=== PATIENT | female | born 1990 | race Caucasian/White ===

== ENCOUNTER 2019-06-01 21:28 | Emergency (ER) | payer BC, OTHER ==
[2019-06-01] MEDS ORDERED: Acetaminophen 500 MG Tab PO ONE (22:01)
--- NOTE | 2019-06-01 22:07 | EDM.PDOC ---
ED HPI GENERAL MEDICAL PROBLEM - General Chief Complaint: Lower Extremity Injury/Pain Stated Complaint: PT HURT LT ANKLE Time Seen by Provider: 06/01/19 21:55 - History of Present Illness INITIAL COMMENTS - FREE TEXT/NARRATIVE: HISTORY AND PHYSICAL: History of present illness: The patient is a healthy 29-year-old female who is newly diagnosed as and is only about 4 weeks and presents with complaints of left ankle pain that occurred this morning while she was playing volleyball at a work event. She says that she stopped to make a play and rolled her ankle and did not fall to the ground but she has had pain at her lateral ankle since that time. She did not hit her head pass out or blackout and has no proximal left leg knee hip or thigh pain. She has not taken anything for the pain today concerned about an injury. She has no abdominal complaints and no other systemic complaints. She has been walking around on the injury throughout the day today but has tried to limit that Review of systems: As per history of present illness and below otherwise all systems reviewed and negative. Past medical history: As per history of present illness and as reviewed below otherwise noncontributory. Surgical history: As per history of present illness and as reviewed below otherwise noncontributory. Social history: No reported history of drug or alcohol abuse. Family history: As per history of present illness and as reviewed below otherwise noncontributory. Physical exam: General: Well-developed well-nourished female who is nontoxic and vital signs are noted by me HEENT: Atraumatic, normocephalic, negative for conjunctival pallor or scleral icterus, mucous membranes moist, throat clear, neck supple, nontender, trachea midline. Lungs: Clear to auscultation, breath sounds equal bilaterally, chest nontender. Heart: S1S2, regular rate and rhythm no overt murmurs Abdomen: Soft, nondistended, nontender. . Pelvis: Stable nontender. No lateral hip tenderness on the left Genitourinary: Deferred. Rectal: Deferred. Extremities: Atraumatic and full range of motion of all extremities with the exception of the left ankle where there is some minimal soft tissue swelling seen at the lateral ankle. There is no ecchymosis abrasions or erythema appreciated and there is tenderness with palpation of this region but there are no bony defects or malalignments appreciated. The distal foot and metatarsals including the fifth metatarsal has no tenderness as do the toes and neurovascular is intact. There is no heel tenderness and no proximal tib-fib knee thigh or hip tenderness on the left. The legs are, negative for cords or calf pain. Neurovascular unremarkable. Neuro: Awake, alert, oriented. Cranial nerves II through XII unremarkable. Cerebellum unremarkable. Motor and sensory unremarkable throughout. Exam nonfocal. Diagnostics: X-ray left ankle Therapeutics: Ice pack, Tylenol, ortho boot and crutches Patient is aware that as she is early first trimester and pain management is limited to just Tylenol. She is comfortable with this care plan Impression: Left ankle injury Definitive disposition and diagnosis as appropriate pending reevaluation and review of above. Left Pain Score (Numeric/FACES): 5 - Related Data Allergies Allergy/AdvReac Type Severity Reaction Status Date / Time No Known Allergies Allergy Verified 06/01/19 21:42 Home Meds: Home Meds Albuterol [Ventolin HFA] 2 puff INH ASDIRECTED PRN 07/13/16 [History] Mv-Mn/Iron/FA/Herbal/Digestive [ One Tablet] 1 tab PO DAILY 07/13/16 [ History] ALPRAZolam [Alprazolam] 0.5 mg PO ASDIRECTED PRN 06/29/18 [History] Past Medical History HEENT History: Reports: Other (See Below) Other HEENT History: wears glasses Cardiovascular History: Reports: None Respiratory History: Reports: Asthma Gastrointestinal History: Reports: None Genitourinary History: Reports: None 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: Musculoskeletal History: Reports: None Neurological History: Reports: None Psychiatric History: Reports: Anxiety Endocrine/Metabolic History: Reports: None 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 Hematologic History: Reports: None Immunologic History: Reports: None Oncologic (Cancer) History: Reports: None Dermatologic History: Reports: None - Infectious Disease History Infectious Disease History: Reports: None - Past Surgical History Head Surgeries/Procedures: Reports: None HEENT Surgical History: Reports: Oral Surgery, Tonsillectomy Female Surgical History: Reports: Section Social & Family History - Family History Family Medical History: Noncontributory Respiratory: Reports: Asthma GI: Reports: Irritable Bowel Syndrome, Other (See Below) Other GI Family History: Ulcerative colitis : Reports: None OBGYN: Reports: None, Recurrent Spontaneous Musculoskeletal: Reports: Other (See Below) Other Musculoskeletal Family History: Rheumatoid arthritis Neurological: Reports: Dementia, TIA Psychiatric: Reports: None Endocrine/Metabolic: Reports: None Hematologic: Reports: Other (See Below) Other Hematologic Family History: Factor 5 disorder Immunologic: Reports: None Dermatologic: Reports: Psoriasis Oncologic: Reports: Other (See Below) Other Oncologic Family History: Multiple myloma - Tobacco Use Smoking Status *Q: Never Smoker - Caffeine Use Caffeine Use: Reports: Tea - Recreational Drug Use Recreational Drug Use: No Review of Systems - Review of Systems Review Of Systems: ROS reveals no pertinent complaints other than HPI. ED EXAM, GENERAL - Physical Exam Exam: See Below (See dictation) Course - Vital Signs Last Recorded V/S: Last Vital Signs Temp 36.6 C 06/01/19 21:43 Pulse 86 06/01/19 21:43 Resp 18 06/01/19 21:43 BP 127/66 06/01/19 21:43 Pulse Ox 100 06/01/19 21:43 - Orders/Labs/Meds Orders: Active Orders 24 hr Category Date Time Status Ankle Min 3V Lt [CR] Stat Exams 06/01/19 22:01 Taken DME for Discharge [COMM] Stat Oth 06/01/19 22:32 Ordered Meds: Medications Discontinued Medications Generic Name Dose Route Start Last Admin Trade Name Danette PRN Reason Stop Dose Admin Acetaminophen 1,000 mg 06/01/19 22:01 06/01/19 22:06 Tylenol Extra Strength PO 06/01/19 22:02 1,000 mg ONETIME ONE Administration Departure - Departure Time of Disposition: 22:33 Disposition: Home, Self-Care 01 Condition: Good Clinical Impression: Left ankle injury Qualifiers: Encounter type: initial encounter Qualified Code(s): S99.912A - Unspecified injury of left ankle, initial encounter - Discharge Information Referrals: PCP,None [Primary Care Provider] - Forms: ED Department Discharge Additional Instructions: The following information is given to patients seen in the emergency department who are being discharged to home. This information is to outline your options for follow-up care. We provide all patients seen in our emergency department with a follow-up referral. The need for follow-up, as well as the timing and circumstances, are variable depending upon the specifics of your emergency department visit. If you don't have a primary care physician on staff, we will provide you with a referral. We always advise you to contact your personal physician following an emergency department visit to inform them of the circumstance of the visit and for follow-up with them and/or the need for any referrals to a consulting specialist. The emergency department will also refer you to a specialist when appropriate. This referral assures that you have the opportunity for followup care with a specialist. All of these measure are taken in an effort to provide you with optimal care, which includes your followup. Under all circumstances we always encourage you to contact your private physician who remains a resource for coordinating your care. When calling for followup care, please make the office aware that this follow-up is from your recent emergency room visit. If for any reason you are refused follow-up, please contact the [facility] emergency department at and ask to speak to the emergency department charge nurse. Dr Barragan, Orthopedist [facility] [address] [place] [address] Dr Arellano - Dr Myers - Dr Randhawa [facility] at [facility] [address] [place] [address] [facility] [address] [place] [address] Ice and elevate the area and do not weight-bear until you follow up with an pharmacy operations specialist. We no longer have orthopedics available here in our clinics and resources have been given to above of local clinics that you can follow up with. You have been given a disc so that the specialist can review your x-rays on your appointment. His [id number] Tylenol only as you are early for pain management and where the ortho boot and use crutches as you have been shown. Return to ER as needed and as discussed - My Orders Last 24 Hours: My Active Orders 06/01/19 22:01 Ankle Min 3V Lt [CR] Stat 06/01/19 22:32 DME for Discharge [COMM] Stat - Assessment/Plan Last 24 Hours: My Active Orders 06/01/19 22:01 Ankle Min 3V Lt [CR] Stat 06/01/19 22:32 DME for Discharge [COMM] Stat
--- NOTE | 2019-06-01 23:03 | CR ---
Indication: Injury and pain Technique: Left ankle 3 views. Comparison: None Findings: Bones: 2 x 1 millimeter crescent-shaped density at the fibular tip. Joint spaces: Unremarkable. Soft tissues: Lateral soft tissue swelling. Impression: Lateral soft tissue swelling with small ossification near the fibular tip. Differential diagnosis includes an ossicle or age-indeterminate avulsion fragment. Dictated by Junior Cortez MD @ Jun 01 2019 11:01PM Signed by Dr. Junior Cortez @ Jun 01 2019 11:02PM
[2019-06-01 23:26] VITALS: BP 105/70; PULSE 78
== END 2019-06-01 21:55 | disposition home or self-care (01) ==
LOC: MW.ED 21:28
DX: S99.912A Unspecified injury of left ankle, initial encounter (principal); J45.909 Unspecified asthma, uncomplicated; F41.9 Anxiety disorder, unspecified; Z79.51 Long term (current) use of inhaled steroids; Z98.890 Other specified postprocedural states; Z79.899 Other long term (current) drug therapy; X50.0XXA Overexertion from strenuous movement or load, initial encounter; Y93.68 Activity, volleyball (beach) (court); Y99.0 Civilian activity done for income or pay
CPT/HCPCS: 73610; 99283; A9270

== ENCOUNTER 2020-01-29 03:34 | Inpatient (IN) | payer OTHER ==
[2020-01-29] MEDS ORDERED: Sodium Chloride 0.9% 10 ML SDV IV PRN (05:22)
[2020-01-29] MEDS ORDERED: Citric Acid/Sodium Citrate Solution 30 ML Cup PO ONE (05:22)
[2020-01-29] MEDS ORDERED: Ondansetron 4 MG/2 ML SDV IVPUSH PRN ×3 (05:22→09:17)
[2020-01-29] MEDS ORDERED: Sodium Chloride 0.9% 10 ML Syringe FLUSH PRN (05:22)
[2020-01-29] MEDS ORDERED: Sodium Chloride 0.9% 2.5 ML Syringe FLUSH PRN (05:22)
[2020-01-29] MEDS ORDERED: Oxytocin/0.9 % Sodium Chloride 30 UNIT/500 ML BAG IV SCH (05:30)
[2020-01-29] MEDS: Lactated Ringers 1,000 ML IV SCH ×2 (05:52→06:43)
[2020-01-29] MEDS ORDERED: Citric Acid/Sodium Citrate Solution 30 ML Cup ONE (07:27)
--- NOTE | 2020-01-29 07:32 | PCM.PREANE ---
Preanesthetic Assessment - Anesthesia/Transfusion/Family Hx Anesthesia History: Prior Anesthesia Reaction Other Type of Anesthesia Reaction Comment: spinal headache after spinal anesthesia requiring 2 blood patches 7 days ap Family History of Anesthesia Reaction: No Transfusion History: No Prior Transfusion(s) Intubation History: Unknown - Review of Systems General: No Symptoms Pulmonary: No Symptoms Cardiovascular: No Symptoms Gastrointestinal: No Symptoms Neurological: No Symptoms Other: Reports: None - Physical Assessment Height: 5 ft 8 in Weight: 88.451 kg ASA Class: 2 Mental Status: Alert & Oriented x3 Airway Class: Mallampati = 2 Dentition: Reports: Normal Dentition Thyro-Mental Finger Breadths: 3 Mouth Opening Finger Breadths: 3 ROM/Head Extension: Full Lungs: Clear to Auscultation, Normal Respiratory Effort Cardiovascular: Regular Rate, Regular Rhythm - Lab Values: Laboratory Last Values WBC 8.04 K/uL (4.0-11.0) 01/29/20 05:49 RBC 4.09 M/uL (4.30-5.90) L 01/29/20 05:49 Hgb 13.0 g/dL (12.0-16.0) 01/29/20 05:49 Hct 38.7 % (36.0-46.0) 01/29/20 05:49 MCV 94.6 fL (80.0-98.0) 01/29/20 05:49 MCH 31.8 pg (27.0-32.0) 01/29/20 05:49 MCHC 33.6 g/dL (31.0-37.0) 01/29/20 05:49 RDW Std Deviation 43.4 fl (28.0-62.0) 01/29/20 05:49 RDW Coeff of Mary 13 % (11.0-15.0) 01/29/20 05:49 Plt Count 172 K/uL (150-400) 01/29/20 05:49 MPV 10.70 fL (7.40-12.00) 01/29/20 05:49 Nucleated RBC % 0.0 /100WBC 01/29/20 05:49 Nucleated RBCs # 0 K/uL 01/29/20 05:49 Blood Type O POSITIVE 01/29/20 06:18 Antibody Screen NEGATIVE 01/29/20 06:18 - Allergies Allergies/Adverse Reactions: Allergies Allergy/AdvReac Type Severity Reaction Status Date / Time No Known Allergies Allergy Verified 01/23/20 10:07 - Blood Blood Available: No - Anesthesia Plan Pre-Op Medication Ordered: None - Acknowledgements Anesthesia Type Planned: Spinal (general anesthesia back-up plan) Pt an Appropriate Candidate for the Planned Anesthesia: Yes Alternatives and Risks of Anesthesia Discussed w Pt/Guardian: Yes Pt/Guardian Understands and Agrees with Anesthesia Plan: Yes PreAnesthesia Questionnaire HEENT History: Reports: Other (See Below) Other HEENT History: wears glasses Cardiovascular History: Reports: None Respiratory History: Reports: Asthma (mild to moderate) Gastrointestinal History: Reports: None Genitourinary History: Reports: None 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: , 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 Musculoskeletal History: Reports: None Neurological History: Reports: None Psychiatric History: Reports: Anxiety Endocrine/Metabolic History: Reports: None Hematologic History: Reports: None Immunologic History: Reports: None Oncologic (Cancer) History: Reports: None Dermatologic History: Reports: None - Infectious Disease History Infectious Disease History: Reports: Scarlet Fever, Shingles - Past Surgical History Head Surgeries/Procedures: Reports: None HEENT Surgical History: Reports: Oral Surgery, Tonsillectomy Other HEENT Surgeries/Procedures: wisdom teeth extraction, tonsillectomy Cardiovascular Surgical History: Reports: None Respiratory Surgical History: Reports: None GI Surgical History: Reports: None Female Surgical History: Reports: Section (x2), D&C Endocrine Surgical History: Reports: None Neurological Surgical History: Reports: None Musculoskeletal Surgical History: Reports: None Oncologic Surgical History: Reports: None Dermatological Surgical History: Reports: None - SUBSTANCE USE Smoking Status *Q: Never Smoker Second Hand Smoke Exposure: No - HOME MEDS Home Medications: Home Meds Albuterol [Ventolin HFA] 2 puff INH ASDIRECTED PRN 07/13/16 [History] Mv-Mn/Iron/FA/Herbal/Digestive [ One Tablet] 1 tab PO DAILY 07/13/16 [ History] ALPRAZolam [Alprazolam] 0.5 mg PO ASDIRECTED PRN 06/29/18 [History] Fluticasone Propionate [Flovent HFA] 2 puff INH DAILY 01/23/20 [History] - CURRENT (IN HOUSE) MEDS Current Meds: Current Medications Lactated Ringer's (Ringers, Lactated) 1,000 mls @ 500 mls/hr IV BOLUS SUSANNE Last Admin: 01/29/20 06:43 Dose: 500 mls/hr Oxytocin/Sodium Chloride (Oxytocin 30 Unit/500 Ml-Ns) 30 unit in 500 mls @ 250 mls/hr IV TITRATE [facility] Ondansetron HCl (Zofran) 4 mg IVPUSH Q4H PRN PRN Reason: Nausea/Vomiting Sodium Chloride (Saline Flush) 10 ml FLUSH ASDIRECTED PRN PRN Reason: Keep Vein Open Sodium Chloride (Saline Flush) 2.5 ml FLUSH ASDIRECTED PRN PRN Reason: Keep Vein Open Sodium Chloride (Normal Saline) 10 ml IV ASDIRECTED PRN PRN Reason: IV Use Discontinued Medications Citric Acid/Sodium Citrate (Bicitra Solution) 30 ml PO ONETIME ONE Stop: 01/29/20 05:23
[2020-01-29] MEDS ORDERED: Phenylephrine 1% 10 MG/ML SDV ONE (07:33)
[2020-01-29] MEDS ORDERED: Oxytocin 10 Units/1 ML SDV ONE (07:36)
[2020-01-29] MEDS ORDERED: Ketorolac 30 MG/ML SDV ONE (07:37)
[2020-01-29] MEDS ORDERED: Ondansetron 4 MG/2 ML SDV ONE (07:37)
[2020-01-29] MEDS ORDERED: Sodium Chloride 0.9% 20 ML ONE (07:37)
[2020-01-29] MEDS ORDERED: ceFAZolin 1 GM Vial ONE (07:37)
[2020-01-29] MEDS ORDERED: Morphine PF 10 MG/10 ML SDV ONE (07:41)
[2020-01-29] MEDS ORDERED: Propofol 200 MG/20 ML SDV ONE (08:06)
[2020-01-29] MEDS ORDERED: Midazolam 1 MG/ML 2 ML SDV ONE (08:28)
--- NOTE | 2020-01-29 08:48 | PCM.OPNOTE ---
- General Post-Op/Procedure Note Date of Surgery/Procedure: 01/29/20 Operative Procedure(s): repeat low transverse Findings: Liveborn male 9/9 weight pending, normal pelvis Pre Op Diagnosis: 39 weeks, prior , desires repeat Post-Op Diagnosis: Same Anesthesia Technique: Spinal Primary Surgeon: Stefani Angel Secondary Surgeon: Sherrell Dunlap Anesthesia Provider: Bassam Servin Pathology: none Fluid Replacement, Intraop: 1,600 EBL in mLs: 300 Complications: None Known Condition: Good Free Text/Narrative:: Intake & Output 01/28/20 01/29/20 01/29/20 22:59 06:59 14:59 Intake Total 1000 Balance 1000
[2020-01-29] MEDS ORDERED: Bisacodyl 10 MG Supp RECTAL PRN (08:49)
[2020-01-29] MEDS ORDERED: diphenhydrAMINE 50 MG/ML SDV IVPUSH PRN ×2 (08:49→09:17)
[2020-01-29] MEDS ORDERED: Lanolin 100% Cream 7 GM Tube TOP PRN (08:49)
[2020-01-29] MEDS ORDERED: Tranexamic Acid 1,000 MG in Sodium Chloride 0.9% 100 ML IV PRN (08:49)
[2020-01-29] MEDS ORDERED: Misoprostol 200 MCG Tab RECTAL PRN (08:49)
[2020-01-29] MEDS ORDERED: Methylergonovine 0.2 MG/1 ML Amp IM PRN (08:49)
[2020-01-29] MEDS ORDERED: Oxytocin 10 Units/1 ML SDV IM PRN (08:49)
[2020-01-29] MEDS ORDERED: Oxytocin/Lactated Ringers 30 UNIT/500 ML BAG IV SCH (09:00)
[2020-01-29] MEDS ORDERED: Lactated Ringers 1,000 ML IV SCH (09:00)
[2020-01-29] MEDS ORDERED: fentaNYL 100 MCG/2 ML SDV IVPUSH PRN ×2 (09:17→09:57)
[2020-01-29] MEDS ORDERED: Naloxone 0.4 MG/ML Syringe IVPUSH PRN (09:17)
[2020-01-29] MEDS ORDERED: Acetaminophen/oxyCODONE 325-5 MG Tab PO PRN (09:17)
[2020-01-29] MEDS ORDERED: Oxytocin/0.9 % Sodium Chloride 30 UNIT/500 ML BAG ONE (09:40)
[2020-01-29] MEDS: Nalbuphine 10 MG/1 ML Vial IVPUSH PRN ×3 (10:19→20:31)
[2020-01-29] MEDS: Docusate Sodium 100 MG Cap PO SCH ×2 (13:10→20:38)
[2020-01-29] MEDS: Acetaminophen/oxyCODONE 325-5 MG Tab PO PRN ×3 (14:21→23:47)
[2020-01-29] MEDS: Ibuprofen 800 MG Tab PO PRN (22:24)
--- NOTE | 2020-01-30 05:03 | PCM48HPAN ---
Post Anesthesia Note - EVALUATION WITHIN 48HRS OF ANESTHETIC Vital Signs in Normal Range: Yes Patient Participated in Evaluation: Yes Respiratory Function Stable: Yes Airway Patent: Yes Cardiovascular Function Stable: Yes Hydration Status Stable: Yes Pain Control Satisfactory: Yes Nausea and Vomiting Control Satisfactory: Yes Mental Status Recovered: Yes Vital Signs: Last Vital Signs Temp 36.4 C 01/30/20 04:00 Pulse 67 01/30/20 04:00 Resp 16 01/30/20 04:00 BP 98/62 01/30/20 04:00 Pulse Ox 97 01/30/20 04:00
[2020-01-30] MEDS: Acetaminophen/oxyCODONE 325-5 MG Tab PO PRN ×5 (05:49→22:59)
--- NOTE | 2020-01-30 08:22 | PCM.PNPP ---
- General Info Date of Service: 01/30/20 Functional Status: Reports: Pain Controlled, Tolerating Diet, Ambulating, Urinating - Review of Systems General: Reports: No Symptoms HEENT: Reports: No Symptoms Pulmonary: Reports: No Symptoms Cardiovascular: Reports: No Symptoms Gastrointestinal: Reports: No Symptoms Genitourinary: Reports: No Symptoms Musculoskeletal: Reports: No Symptoms Skin: Reports: No Symptoms Neurological: Reports: No Symptoms Psychiatric: Reports: No Symptoms - General Info Date of Service: 01/30/20 - Patient Data Vital Signs - Most Recent: Last Vital Signs Temp 36.4 C 01/30/20 04:00 Pulse 67 01/30/20 04:00 Resp 14 01/30/20 05:00 BP 98/62 01/30/20 04:00 Pulse Ox 97 01/30/20 05:00 Weight - Most Recent: 88.451 kg I&O - Last 24 Hours: Intake & Output 01/29/20 01/30/20 01/30/20 22:59 06:59 14:59 Output Total 1250 1000 Balance -1250 -1000 Lab Results - Last 24 Hours: Laboratory Results - last 24 hr 01/29/20 01/30/20 Range/Units 08:08 04:50 Hgb 11.4 L (12.0-16.0) g/dL Hct 34.9 L (36.0-46.0) % Cord VBG pH 7.400 (7.25-7.45) Cord VBG Base Excess -2 (-10--2) Med Orders - Current: Current Medications Bisacodyl (Dulcolax) 10 mg RECTAL ONETIME PRN PRN Reason: Constipation Diphenhydramine HCl (Benadryl) 25 mg IVPUSH Q6H PRN PRN Reason: Itching or Nausea Diphenhydramine HCl (Benadryl) 25 mg IVPUSH Q4H PRN PRN Reason: Itching Stop: 01/30/20 09:17 Docusate Sodium (Colace) 100 mg PO BID SUSANNE Last Admin: 01/29/20 20:38 Dose: 100 mg Emollient Ointment (Lansinoh Hpa) 0 gm TOP ASDIRECTED PRN PRN Reason: Sore Nipples Last Admin: 01/29/20 10:21 Dose: 1 tube Fentanyl (Sublimaze) 50 mcg IVPUSH Q1H PRN PRN Reason: Pain (severe 7-10) Last Admin: 01/29/20 10:21 Dose: 50 mcg Fentanyl (Sublimaze) 50 - 100 mcg IVPUSH Q5M PRN PRN Reason: Pain (severe 7-10) Lactated Ringer's (Ringers, Lactated) 1,000 mls @ 125 mls/hr IV ASDIRECTED SUSANNE Last Admin: 01/29/20 09:52 Dose: 125 mls/hr Oxytocin/Lactated Ringer's (Pitocin In Lr 30 Units/500 Ml) 30 unit in 500 mls @ 999 mls/hr IV TITRATE SUSANNE; Protocol Tranexamic Acid 1,000 mg/ (Sodium Chloride) 110 mls @ 660 mls/hr IV ONETIME PRN PRN Reason: Bleeding Ibuprofen (Motrin) 800 mg PO Q8H PRN PRN Reason: mild pain or fever Last Admin: 01/29/20 22:24 Dose: 800 mg Methylergonovine Maleate (Methergine) 0.2 mg IM ONETIME PRN PRN Reason: Excessive Vaginal Bleeding Misoprostol (Cytotec) 1,000 mcg RECTAL ONETIME PRN PRN Reason: excessive bleeding Nalbuphine HCl (Nubain) 5 mg IVPUSH ASDIRECTED PRN PRN Reason: Itching Last Admin: 01/29/20 20:31 Dose: 5 mg Naloxone HCl (Narcan) 0.1 mg IVPUSH ONETIME PRN PRN Reason: Respiratory Depression Stop: 01/30/20 09:17 Ondansetron HCl (Zofran) 4 mg IVPUSH Q4H PRN PRN Reason: Nausea/Vomiting Ondansetron HCl (Zofran) 4 mg IVPUSH Q6H PRN PRN Reason: Nausea Oxycodone/Acetaminophen (Percocet 325-5 Mg) 1 tab PO Q4H PRN PRN Reason: Pain (moderate 4-6) Last Admin: 01/30/20 05:49 Dose: 1 tab Oxycodone/Acetaminophen (Percocet 325-5 Mg) 2 tab PO Q4H PRN PRN Reason: Pain (moderate 4-6) Last Admin: 01/29/20 23:47 Dose: 2 tab Oxycodone/Acetaminophen (Percocet 325-5 Mg) 2 tab PO Q6H PRN PRN Reason: Pain (moderate 4-6) Oxytocin (Pitocin) 10 unit IM ASDIRECTED PRN PRN Reason: Excessive Vaginal Bleeding Discontinued Medications Cefazolin Sodium (Ancef) Confirm Administered Dose 2 gm .ROUTE .STK-MED ONE Stop: 01/29/20 07:38 Citric Acid/Sodium Citrate (Bicitra Solution) 30 ml PO ONETIME ONE Stop: 01/29/20 05:23 Citric Acid/Sodium Citrate (Bicitra Solution) Confirm Administered Dose 30 ml .ROUTE .STK-MED ONE Stop: 01/29/20 07:28 Lactated Ringer's (Ringers, Lactated) 1,000 mls @ 500 mls/hr IV BOLUS SUSANNE Last Admin: 01/29/20 06:43 Dose: 500 mls/hr Oxytocin/Sodium Chloride (Oxytocin 30 Unit/500 Ml-Ns) 30 unit in 500 mls @ 250 mls/hr IV TITRATE SUSANNE Sodium Chloride (Normal Saline) Confirm Administered Dose 20 mls @ as directed .ROUTE .STK-MED ONE Stop: 01/29/20 07:38 Oxytocin/Sodium Chloride (Oxytocin 30 Unit/500 Ml-Ns) Confirm Administered Dose 30 unit in 500 mls @ as directed .ROUTE .STK-MED ONE Stop: 01/29/20 09:41 Last Admin: 01/29/20 09:53 Dose: 500 mls/hr Ketorolac Tromethamine (Toradol) Confirm Administered Dose 30 mg .ROUTE .STK- MED ONE Stop: 01/29/20 07:38 Midazolam HCl (Versed 1 Mg/Ml) Confirm Administered Dose 2 mg .ROUTE .STK-MED ONE Stop: 01/29/20 08:29 Morphine Sulfate (Duramorph Pf) Confirm Administered Dose 10 mg .ROUTE .STK-MED ONE Stop: 01/29/20 07:42 Ondansetron HCl (Zofran) 4 mg IVPUSH Q4H PRN PRN Reason: Nausea/Vomiting Ondansetron HCl (Zofran) Confirm Administered Dose 4 mg .ROUTE .STK-MED ONE Stop: 01/29/20 07:38 Oxytocin (Pitocin) Confirm Administered Dose 20 unit .ROUTE .STK-MED ONE Stop: 01/29/20 07:37 Phenylephrine HCl (Thony-Synephrine) Confirm Administered Dose 10 mg .ROUTE .STK- MED ONE Stop: 01/29/20 07:34 Propofol (Diprivan 20 Ml) Confirm Administered Dose 200 mg .ROUTE .STK-MED ONE Stop: 01/29/20 08:07 Sodium Chloride (Saline Flush) 10 ml FLUSH ASDIRECTED PRN PRN Reason: Keep Vein Open Sodium Chloride (Saline Flush) 2.5 ml FLUSH ASDIRECTED PRN PRN Reason: Keep Vein Open Sodium Chloride (Normal Saline) 10 ml IV ASDIRECTED PRN PRN Reason: IV Use Tranexamic Acid (Cyklokapron) Confirm Administered Dose 1,000 mg .ROUTE .STK- MED ONE Stop: 01/29/20 08:32 - Interaction Infant Disposition, : at Bedside Infant Interaction: Holding Infant Feeding: Breastfed ; Nursed Well (right nipple bleeding significantly) Support Person: - Recovery Exam Fundal Tone: Firm Fundal Level: 1 Fingerbreadths Below Umbilicus Fundal Placement: Midline Lochia Amount: Scant Lochia Color: Rubra/Red Perineum Description: Intact, Minimal Bruising/Swelling Episiotomy/Laceration: None Bladder Status: Indwelling Catheter in Place Urinary Elimination: Indwelling Catheter - Exam General: Alert, Oriented Neck: Supple Lungs: Normal Respiratory Effort GI/Abdominal Exam: Soft, Non-Tender Extremities: Non-Tender, No Pedal Edema Skin: Warm, Dry, Intact Wound/Incisions: Dressing Dry and Intact Neurological: No New Focal Deficit Psy/Mental Status: Alert, Normal Affect, Normal Mood Physical Findings Comment:: right nipple inverted with abrasion bleeding at edge of nipple. - Problem List & Annotations (1) Previous delivery, delivered SNOMED Code(s): 793960074, 073210232 Code(s): O34.219 - MATERNAL CARE FOR UNSP TYPE SCAR FROM PREVIOUS DEL Status: Acute Current Visit: No - Problem List Review Problem List Initiated/Reviewed/Updated: Yes - My Orders Last 24 Hours: My Active Orders 01/29/20 08:49 Patient Status [ADT] Routine Ambulate [RC] PER UNIT ROUTINE Antiembolic Devices [RC] PER UNIT ROUTINE Communication Order [RC] PER UNIT ROUTINE Communication Order [RC] PER UNIT ROUTINE Communication Order [RC] Per Unit Routine May Shower [RC] ASDIRECTED RT Incentive Spirometry [RC] Q2HWA Vital Signs [RC] PER UNIT ROUTINE Acetaminophen/oxyCODONE [Percocet 325-5 MG] 1 tab PO Q4H PRN Acetaminophen/oxyCODONE [Percocet 325-5 MG] 2 tab PO Q4H PRN Ibuprofen [Motrin] 800 mg PO Q8H PRN Lanolin [Lansinoh HPA] See Dose Instructions TOP ASDIRECTED PRN Methylergonovine [Methergine] 0.2 mg IM ONETIME PRN Ondansetron [Zofran] 4 mg IVPUSH Q4H PRN Oxytocin [Pitocin] 10 unit IM ASDIRECTED PRN Tranexamic Acid [Cyklokapron] 1,000 mg Sodium Chloride 0.9% [Normal Saline] 100 ml IV ONETIME bisacodyL [Dulcolax] 10 mg RECTAL ONETIME PRN diphenhydrAMINE [Benadryl] 25 mg IVPUSH Q6H PRN miSOPROStoL [Cytotec] 1,000 mcg RECTAL ONETIME PRN Abdominal Binder [OM.PC] Urgent Assess Lochia [WOMSER] Per Unit Routine Assess Uterine Involution [WOMSER] Per Unit Routine Breast Pump [WOMSER] Per Unit Routine Heat Therapy [OM.PC] Routine Peripheral IV Discontinue [OM.PC] Routine Sequential Compression Device [OM.PC] Per Unit Routine Resuscitation Status Routine 01/29/20 08:50 Cooling Warming Measures [RC] ASDIRECTED Notify Provider Intake and Out [RC] ASDIRECTED Notify Provider Vital Signs [RC] ASDIRECTED 01/29/20 08:52 Intake and Output [RC] Q8H 01/29/20 09:00 Docusate Sodium [Colace] 100 mg PO BID Lactated Ringers [Ringers, Lactated] 1,000 ml IV ASDIRECTED Oxytocin/Lactated Ringers [Pitocin in LR 30 Units/500 ML] 30 unit in 500 ml IV TITRATE 01/29/20 Lunch Regular Diet [DIET] - Assessment Assessment:: POD1 after repeat , stable minimal lochia, pain is well controlled with percocet only. Abrasion of right nipple bleeding significantly. - Plan Plan:: Continue postop care. Will have her pump right breast, then treat abrasion with silver nitrate and then rest with out stimulation for 6 hours.
--- NOTE | 2020-01-30 08:43 | OR ---
SURGEON: Stefani Angel M.D. DATE OF PROCEDURE: 01/29/2020 PREOPERATIVE DIAGNOSES: A 39-week intrauterine , prior delivery x2, declines vaginal trial of labor. POSTOPERATIVE DIAGNOSES: A 39-week intrauterine , prior delivery x2, declines vaginal trial of labor. PROCEDURE: Repeat low transverse section. PRIMARY SURGEON: Stefani Angel MD WAITER: first leola Boyle, certified. ANESTHESIA: Spinal. ESTIMATED BLOOD LOSS: 300 mL. URINE OUTPUT: 200 mL. FINDINGS: Liveborn male, score of 9 and 9, weighing 4020 g. Normal-appearing uterus, tubes, and ovaries. COMPLICATIONS: None known. DISPOSITION: Stable to recovery. BRIEF HISTORY: This is a 30-year-old female. She is G4, P 2-0-1-2. She presents at 39 weeks for repeat delivery with risks discussed including bleeding, infection, injury to bowel, bladder, blood vessels, ureters, or other organs, risk of thromboembolic event, and risk of anesthesia. Understanding all these risks, she does desire to proceed. DESCRIPTION OF PROCEDURE: With the patient in the left tilt position, under adequate spinal analgesia, the abdomen was prepped with chlorhexidine and draped in the usual fashion for abdominal surgery. SCDs were in place. Zaman catheter had been placed. Appropriate time-out was held. After documentation of adequate analgesia, the prior cicatrix was excised and the incision was carried through the subcutaneous tissue to the fascia, which was scored transversely in the midline. The fascial incision was extended laterally using curved Dunlap scissors. The fascia was elevated from the underlying rectus muscle using sharp and blunt dissection. The peritoneum was entered. A finger was used to separate the peritoneum, and immediately upon entering the peritoneum, the patient experienced increased sensation and discomfort. The Wilbert O retractor was placed. The visceroperitoneum of the lower uterine segment was incised and a transverse curvilinear incision was made over the lower uterine segment and a finger was used to enter the amniotic cavity. The incision was extended using blunt dissection. The head was delivered via the uterine incision and with subsequent delivery of the 's shoulders and body. The was a liveborn male, score of 9 and 9, weighing 4020 g. After 1 minute, the cord was doubly clamped and cut. The was handed to the nurse attending delivery. Cord blood was collected for cord ABGs as well as routine cord blood sampling. At this point, the patient was given additional pain medication by Anesthesia, which allowed us to proceed with the section. The placenta was removed by manual extraction. The uterus was cleaned with a dry laparotomy tape. The cervix was opened with ring forceps. Uterine incision was closed with a running lock suture of 0 Polysorb. A small area of bleeding on the right side of the incision was controlled with a [id number] suture and the incision was carefully inspected, it was hemostatic. Therefore, the Wilbert O C- section retractor was removed. The parietal peritoneum and rectus muscles were loosely approximated in the midline using running mattress suture of 0 Polysorb. There was some generalized oozing from the rectus muscle, which I carefully and meticulously controlled isolating any areas of bleeding with the hemostat and cauterizing. This being complete, I did request for tranexamic acid just to ensure that no subfascial hematoma would develop given family history of surgical hematomas. The fascia was closed with a running suture of 0 Polysorb. Subcutaneous tissue was copiously irrigated and carefully inspected. All areas of bleeding that were noted were cauterized. The skin was closed with a running subcuticular suture of 3-0 Monocryl followed by Dermabond. I did undermine the skin slightly to release prior retracted scar. Final sponge, needle, and instrument counts were reported as correct. There were no complications. Mother and baby are in LDR in good condition. LOLIS / JOSEPH /[id number]
[2020-01-30] MEDS: Docusate Sodium 100 MG Cap PO SCH ×2 (09:34→21:09)
[2020-01-30] MEDS: Ibuprofen 800 MG Tab PO PRN ×2 (09:39→18:17)
--- NOTE | 2020-01-30 12:22 | US ---
Right breast ultrasound: Multiple real-time images of the right breast were obtained. Hypoechoic area is identified at the 9:00 position 6 cm from the nipple. This may possibly represent a slightly complicated cyst measuring 8 mm. No additional abnormality is appreciated. Impression: 1. Possible complicated cyst as noted above. Recommend repeat right breast ultrasound in 6 months to confirm hopeful stability or resolution. BI-RADS 3 - probably benign, short-term follow-up is recommended
[2020-01-31] MEDS: Acetaminophen/oxyCODONE 325-5 MG Tab PO PRN ×2 (03:41→09:12)
[2020-01-31] MEDS: Ibuprofen 800 MG Tab PO PRN (03:42)
--- NOTE | 2020-01-31 08:32 | PCM.PNPP ---
- General Info Date of Service: 01/31/20 Functional Status: Reports: Pain Controlled, Tolerating Diet, Ambulating, Urinating - Review of Systems General: Reports: No Symptoms HEENT: Reports: No Symptoms Pulmonary: Reports: No Symptoms Cardiovascular: Reports: No Symptoms Gastrointestinal: Reports: No Symptoms Genitourinary: Reports: No Symptoms Musculoskeletal: Reports: No Symptoms Skin: Reports: No Symptoms Neurological: Reports: No Symptoms Psychiatric: Reports: No Symptoms - General Info Date of Service: 01/31/20 - Patient Data Vital Signs - Most Recent: Last Vital Signs Temp 36.4 C 01/30/20 19:28 Pulse 67 01/31/20 03:44 Resp 18 01/31/20 03:44 BP 116/69 01/31/20 03:44 Pulse Ox 98 01/31/20 03:44 Weight - Most Recent: 88.451 kg Med Orders - Current: Current Medications Bisacodyl (Dulcolax) 10 mg RECTAL ONETIME PRN PRN Reason: Constipation Diphenhydramine HCl (Benadryl) 25 mg IVPUSH Q6H PRN PRN Reason: Itching or Nausea Docusate Sodium (Colace) 100 mg PO BID [facility] Last Admin: 01/30/20 21:09 Dose: 100 mg Emollient Ointment (Lansinoh Hpa) 0 gm TOP ASDIRECTED PRN PRN Reason: Sore Nipples Last Admin: 01/29/20 10:21 Dose: 1 tube Fentanyl (Sublimaze) 50 mcg IVPUSH Q1H PRN PRN Reason: Pain (severe 7-10) Last Admin: 01/29/20 10:21 Dose: 50 mcg Fentanyl (Sublimaze) 50 - 100 mcg IVPUSH Q5M PRN PRN Reason: Pain (severe 7-10) Lactated Ringer's (Ringers, Lactated) 1,000 mls @ 125 mls/hr IV ASDIRECTED SUSANNE Last Admin: 01/29/20 09:52 Dose: 125 mls/hr Oxytocin/Lactated Ringer's (Pitocin In Lr 30 Units/500 Ml) 30 unit in 500 mls @ 999 mls/hr IV TITRATE SUSANNE; Protocol Tranexamic Acid 1,000 mg/ (Sodium Chloride) 110 mls @ 660 mls/hr IV ONETIME PRN PRN Reason: Bleeding Ibuprofen (Motrin) 800 mg PO Q8H PRN PRN Reason: mild pain or fever Last Admin: 01/31/20 03:42 Dose: 800 mg Methylergonovine Maleate (Methergine) 0.2 mg IM ONETIME PRN PRN Reason: Excessive Vaginal Bleeding Misoprostol (Cytotec) 1,000 mcg RECTAL ONETIME PRN PRN Reason: excessive bleeding Nalbuphine HCl (Nubain) 5 mg IVPUSH ASDIRECTED PRN PRN Reason: Itching Last Admin: 01/29/20 20:31 Dose: 5 mg Ondansetron HCl (Zofran) 4 mg IVPUSH Q4H PRN PRN Reason: Nausea/Vomiting Ondansetron HCl (Zofran) 4 mg IVPUSH Q6H PRN PRN Reason: Nausea Oxycodone/Acetaminophen (Percocet 325-5 Mg) 1 tab PO Q4H PRN PRN Reason: Pain (moderate 4-6) Last Admin: 01/30/20 05:49 Dose: 1 tab Oxycodone/Acetaminophen (Percocet 325-5 Mg) 2 tab PO Q4H PRN PRN Reason: Pain (moderate 4-6) Last Admin: 01/31/20 03:41 Dose: 2 tab Oxycodone/Acetaminophen (Percocet 325-5 Mg) 2 tab PO Q6H PRN PRN Reason: Pain (moderate 4-6) Oxytocin (Pitocin) 10 unit IM ASDIRECTED PRN PRN Reason: Excessive Vaginal Bleeding Discontinued Medications Cefazolin Sodium (Ancef) Confirm Administered Dose 2 gm .ROUTE .STK-MED ONE Stop: 01/29/20 07:38 Citric Acid/Sodium Citrate (Bicitra Solution) 30 ml PO ONETIME ONE Stop: 01/29/20 05:23 Citric Acid/Sodium Citrate (Bicitra Solution) Confirm Administered Dose 30 ml .ROUTE .STK-MED ONE Stop: 01/29/20 07:28 Diphenhydramine HCl (Benadryl) 25 mg IVPUSH Q4H PRN PRN Reason: Itching Stop: 01/30/20 09:17 Lactated Ringer's (Ringers, Lactated) 1,000 mls @ 500 mls/hr IV BOLUS SUSANNE Last Admin: 01/29/20 06:43 Dose: 500 mls/hr Oxytocin/Sodium Chloride (Oxytocin 30 Unit/500 Ml-Ns) 30 unit in 500 mls @ 250 mls/hr IV TITRATE SUSANNE Sodium Chloride (Normal Saline) Confirm Administered Dose 20 mls @ as directed .ROUTE .ST-MED ONE Stop: 01/29/20 07:38 Oxytocin/Sodium Chloride (Oxytocin 30 Unit/500 Ml-Ns) Confirm Administered Dose 30 unit in 500 mls @ as directed .ROUTE .[facility]-MED ONE Stop: 01/29/20 09:41 Last Admin: 01/29/20 09:53 Dose: 500 mls/hr Ketorolac Tromethamine (Toradol) Confirm Administered Dose 30 mg .ROUTE .ST- MED ONE Stop: 01/29/20 07:38 Midazolam HCl (Versed 1 Mg/Ml) Confirm Administered Dose 2 mg .ROUTE .ST-MED ONE Stop: 01/29/20 08:29 Morphine Sulfate (Duramorph Pf) Confirm Administered Dose 10 mg .ROUTE .ST-MED ONE Stop: 01/29/20 07:42 Naloxone HCl (Narcan) 0.1 mg IVPUSH ONETIME PRN PRN Reason: Respiratory Depression Stop: 01/30/20 09:17 Ondansetron HCl (Zofran) 4 mg IVPUSH Q4H PRN PRN Reason: Nausea/Vomiting Ondansetron HCl (Zofran) Confirm Administered Dose 4 mg .ROUTE .ST-MED ONE Stop: 01/29/20 07:38 Oxytocin (Pitocin) Confirm Administered Dose 20 unit .ROUTE .ST-MED ONE Stop: 01/29/20 07:37 Phenylephrine HCl (Thony-Synephrine) Confirm Administered Dose 10 mg .ROUTE .ST- MED ONE Stop: 01/29/20 07:34 Propofol (Diprivan 20 Ml) Confirm Administered Dose 200 mg .ROUTE .ST-MED ONE Stop: 01/29/20 08:07 Sodium Chloride (Saline Flush) 10 ml FLUSH ASDIRECTED PRN PRN Reason: Keep Vein Open Sodium Chloride (Saline Flush) 2.5 ml FLUSH ASDIRECTED PRN PRN Reason: Keep Vein Open Sodium Chloride (Normal Saline) 10 ml IV ASDIRECTED PRN PRN Reason: IV Use Tranexamic Acid (Cyklokapron) Confirm Administered Dose 1,000 mg .ROUTE .ST- MED ONE Stop: 01/29/20 08:32 - Interaction Infant Disposition, : at Bedside Infant Interaction: Holding Infant Feeding: Breastfed ; Nursed Well (right nipple bleeding significantly) Support Person: - Recovery Exam Fundal Tone: Firm Fundal Level: 1 Fingerbreadths Below Umbilicus Fundal Placement: Midline Lochia Amount: Scant Lochia Color: Rubra/Red Perineum Description: Intact, Minimal Bruising/Swelling Episiotomy/Laceration: None Bladder Status: Voiding Urinary Elimination: Voided - Exam General: Alert, Oriented HEENT: Pupils Equal Neck: Supple Lungs: Normal Respiratory Effort GI/Abdominal Exam: Soft, Non-Tender, No Organomegaly, No Distention Extremities: Normal Inspection, Non-Tender, No Pedal Edema Skin: Warm, Dry, Intact Wound/Incisions: Healing Well Neurological: No New Focal Deficit Psy/Mental Status: Alert, Normal Affect, Normal Mood - Problem List & Annotations (1) Previous delivery, delivered SNOMED Code(s): 663871576, 823060706 Code(s): O34.219 - MATERNAL CARE FOR UNSP TYPE SCAR FROM PREVIOUS DEL Status: Acute Current Visit: No - Problem List Review Problem List Initiated/Reviewed/Updated: Yes - Assessment Assessment:: POD2 after repeat , stable minimal lochia, pain is well controlled with percocet and ibuprofen. Ultrasound shows small complex cyst at periphery of right breast, however this is unlikely to be causing bleeding as the bleeding appears to be more superficial. Will repeat breast ultrasound in 6 months, hand express or gently pump on right side until bleeding resolved. - Plan Plan:: Dismiss to home, discharge instructions reviewed.
[2020-01-31 08:54] VITALS: BP 119/72; PULSE 81
[2020-01-31] MEDS: Docusate Sodium 100 MG Cap PO SCH (09:12)
== END 2020-01-31 10:55 | disposition home or self-care (01) | DRG 788 ==
LOC: MW.OB 05:17
PROVIDERS: ADMIT Obstetrics & Gynecology; ATTEND Obstetrics & Gynecology
PROC: 10D00Z1 Extraction of Products of Conception, Low, Open Approach (ICD-10-PCS; principal; 2020-01-29)
DX: O34.211 Maternal care for low transverse scar from previous cesarean delivery (principal); Z37.0 Single live birth; O92.29 Other disorders of breast associated with pregnancy and the puerperium; Z3A.39 39 weeks gestation of pregnancy
CPT/HCPCS: 36415; 51702; 59025; 76641-RT; 76641-RT-26; 82803; 85014; 85018; 85027; 86592; 86593; 86850; 86900; 86901; A9270-GY; J0690; J1885; J2250; J2270; J2300; J2370; J2405; J2590; J2704; J3010; J7120

== ENCOUNTER 2020-04-22 06:48 | Day surgery (SDC) | payer OTHER ==
[~2020-04-22 06:48] MED LIST: Lactated Ringers 1,000 ML IV SCH; Sodium Chloride 0.9% 10 ML SDV IV PRN; Sodium Chloride 0.9% 10 ML Syringe FLUSH PRN; Sodium Chloride 0.9% 2.5 ML Syringe FLUSH PRN; ceFAZolin 2 GM in Premix Bag 1 BAG IV ONE
[2020-04-22] MEDS ORDERED: fentaNYL 250 MCG/5 ML SDV ONE (06:53)
[2020-04-22] MEDS ORDERED: Propofol 200 MG/20 ML SDV ONE (06:53)
[2020-04-22] MEDS ORDERED: Midazolam 1 MG/ML 2 ML SDV ONE (06:53)
[2020-04-22] MEDS ORDERED: Dexamethasone 4 MG/ML 5 ML MDV ONE (06:59)
[2020-04-22] MEDS ORDERED: Ondansetron 4 MG/2 ML SDV ONE (06:59)
[2020-04-22] MEDS ORDERED: ceFAZolin/Dextrose,Iso-Osmotic 2 GM/50 ML Duplex Bag IV ONE (07:04)
--- NOTE | 2020-04-22 07:20 | PCM.PREANE ---
Preanesthetic Assessment - Anesthesia/Transfusion/Family Hx Anesthesia History: Prior Anesthesia Without Reaction Other Type of Anesthesia Reaction Comment: spinal headache after spinal anesthesia requiring 2 blood patches 7 days ap Family History of Anesthesia Reaction: No Transfusion History: No Prior Transfusion(s) Intubation History: Unknown - Review of Systems General: No Symptoms Pulmonary: No Symptoms Cardiovascular: No Symptoms Gastrointestinal: No Symptoms Neurological: No Symptoms Other: Reports: None - Physical Assessment NPO Status Date: 04/21/20 Vital Signs: Last Vital Signs Temp 98.2 F 04/22/20 07:00 Pulse 75 04/22/20 07:00 Resp 16 04/22/20 07:00 BP 107/60 04/22/20 07:00 Pulse Ox 96 04/22/20 07:00 Height: 5 ft 8 in Weight: 82.1 kg ASA Class: 2 Mental Status: Alert & Oriented x3 Airway Class: Mallampati = 2 Dentition: Reports: Normal Dentition ROM/Head Extension: Full Lungs: Clear to Auscultation, Normal Respiratory Effort Cardiovascular: Regular Rate, Regular Rhythm - Allergies Allergies/Adverse Reactions: Allergies Allergy/AdvReac Type Severity Reaction Status Date / Time cat dander Allergy Sneezing Verified 04/16/20 11:27 dog dander Allergy Sneezing Verified 04/16/20 11:27 - Blood Blood Available: No - Anesthesia Plan Pre-Op Medication Ordered: None - Acknowledgements Anesthesia Type Planned: General Anesthesia Pt an Appropriate Candidate for the Planned Anesthesia: Yes Alternatives and Risks of Anesthesia Discussed w Pt/Guardian: Yes Pt/Guardian Understands and Agrees with Anesthesia Plan: Yes Additional Comments: PMH: anxiety- took xanax this am, asthma- last use of rescue inhaler was last pm, last exac off asthma was years ago, is breast feeding, has ear piercings PLAN GA/LMA PreAnesthesia Questionnaire HEENT History: Reports: Other (See Below) Other HEENT History: wears glasses Cardiovascular History: Reports: None Respiratory History: Reports: Asthma Gastrointestinal History: Reports: Other (See Below) Other Gastrointestinal History: hx of Splenomegaly- found on Ultrasound- no symptoms Genitourinary History: Reports: None 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 OB/BYN History: currently 11 weeks post- Musculoskeletal History: Reports: None Neurological History: Reports: None Psychiatric History: Reports: Anxiety Endocrine/Metabolic History: Reports: None Hematologic History: Reports: None Immunologic History: Reports: None Oncologic (Cancer) History: Reports: None Dermatologic History: Reports: None - Infectious Disease History Infectious Disease History: Reports: Scarlet Fever, Shingles - Past Surgical History Head Surgeries/Procedures: Reports: None HEENT Surgical History: Reports: Oral Surgery, Tonsillectomy Other HEENT Surgeries/Procedures: wisdom teeth removed Female Surgical History: Reports: Section, D&C Other Female Surgeries/Procedures: x3 - SUBSTANCE USE Smoking Status *Q: Never Smoker Recreational Drug Use History: No - HOME MEDS Home Medications: Home Meds Albuterol [Ventolin HFA] 2 puff INH ASDIRECTED PRN 07/13/16 [History] ALPRAZolam [Alprazolam] 0.5 mg PO ASDIRECTED PRN 06/29/18 [History] Fluticasone Propionate [Flovent HFA] 2 puff INH DAILY 01/23/20 [History] - CURRENT (IN HOUSE) MEDS Current Meds: Current Medications Lactated Ringer's (Ringers, Lactated) 1,000 mls @ 125 mls/hr IV ASDIRECTED SUSANNE Last Admin: 04/22/20 07:18 Dose: 125 mls/hr Documented by: Sodium Chloride (Saline Flush) 2.5 ml FLUSH ASDIRECTED PRN PRN Reason: Keep Vein Open Sodium Chloride (Normal Saline) 10 ml IV ASDIRECTED PRN PRN Reason: IV Use Sodium Chloride (Saline Flush) 10 ml FLUSH ASDIRECTED PRN PRN Reason: Keep Vein Open Discontinued Medications Cefazolin Sodium/Dextrose (Ancef) Confirm Administered Dose 2 gm IV .STK-MED ONE Stop: 04/22/20 07:05 Dexamethasone (Dexamethasone) Confirm Administered Dose 20 mg .ROUTE .STK-MED ONE Stop: 04/22/20 07:00 Fentanyl (Sublimaze) Confirm Administered Dose 250 mcg .ROUTE .STK-MED ONE Stop: 04/22/20 06:54 Cefazolin Sodium/Dextrose 2 gm (/ Premix) 50 mls @ 100 mls/hr IV ONETIME ONE Stop: 04/21/20 11:19 Lidocaine HCl (Xylocaine-Mpf 1%) Confirm Administered Dose 5 ml .ROUTE .STK-MED ONE Stop: 04/22/20 07:00 Midazolam HCl (Versed 1 Mg/Ml) Confirm Administered Dose 2 mg .ROUTE .STK-MED ONE Stop: 04/22/20 06:54 Ondansetron HCl (Zofran) Confirm Administered Dose 4 mg .ROUTE .STK-MED ONE Stop: 04/22/20 07:00 Propofol (Diprivan 20 Ml) Confirm Administered Dose 200 mg .ROUTE .STK-MED ONE Stop: 04/22/20 06:54
[2020-04-22] MEDS ORDERED: Bupivacaine 0.5% 30 ML SDV ONE (07:28)
[2020-04-22] MEDS ORDERED: Octyl 2-Cyanoacrylate 1 Tube ONE (07:28)
[2020-04-22] MEDS ORDERED: ePHEDrine 50 MG/ML SDV ONE (08:29)
[2020-04-22] MEDS ORDERED: Glycopyrrolate 0.2 MG/ML SDV ONE (08:35)
--- NOTE | 2020-04-22 08:59 | PCM.OPNOTE ---
- General Post-Op/Procedure Note Date of Surgery/Procedure: 04/22/20 Operative Procedure(s): Umbilical hernia repair Findings: 1 cm supraumbilical hernia Pre Op Diagnosis: Umbilical hernia Post-Op Diagnosis: same Anesthesia Technique: General LMA Primary Surgeon: Zofia Hurst Fluid Replacement, Intraop: 600 EBL in mLs: 5 Condition: Good
--- NOTE | 2020-04-22 09:32 | PCM.POSTAN ---
POST ANESTHESIA ASSESSMENT - MENTAL STATUS Mental Status: Alert, Oriented - VITAL SIGNS Vital Signs: Last Vital Signs Temp 36.1 C 04/22/20 08:51 Pulse 79 04/22/20 09:21 Resp 16 04/22/20 09:21 BP 113/65 04/22/20 09:21 Pulse Ox 98 04/22/20 09:21 - RESPIRATORY Respiratory Status: Respiratory Rate WNL, Airway Patent, O2 Saturation Stable - CARDIOVASCULAR CV Status: Pulse Rate WNL, Blood Pressure Stable - GASTROINTESTINAL GI Status: No Symptoms - PAIN Pain Score: 0 - POST OP HYDRATION Hydration Status: Adequate & Stable
--- NOTE | 2020-04-22 10:31 | PCM48HPAN ---
Post Anesthesia Note - EVALUATION WITHIN 48HRS OF ANESTHETIC Vital Signs in Normal Range: Yes Patient Participated in Evaluation: Yes Respiratory Function Stable: Yes Airway Patent: Yes Cardiovascular Function Stable: Yes Hydration Status Stable: Yes Pain Control Satisfactory: Yes Nausea and Vomiting Control Satisfactory: Yes Mental Status Recovered: Yes Vital Signs: Last Vital Signs Temp 97.0 F 04/22/20 08:51 Pulse 79 04/22/20 09:21 Resp 16 04/22/20 09:21 BP 113/65 04/22/20 09:21 Pulse Ox 98 04/22/20 09:21
[2020-04-22] MEDS ORDERED: Acetaminophen/oxyCODONE 325-5 MG Tab PO ONE (11:22)
[2020-04-22] MEDS ORDERED: Acetaminophen/oxyCODONE 325-5 MG Tab ONE (11:24)
[2020-04-22 13:31] VITALS: BP 112/60; PULSE 66
--- NOTE | 2020-04-22 16:03 | OR ---
SURGEON: ZOFIA HURST MD DATE OF PROCEDURE: 04/22/2020 PREOPERATIVE DIAGNOSIS: Umbilical hernia. POSTOPERATIVE DIAGNOSIS: Umbilical hernia. PROCEDURE PERFORMED: Umbilical hernia repair. PRIMARY SURGEON: Zofia Hurst MD. ANESTHESIA: General LMA. FLUIDS: 600 mL crystalloid. ESTIMATED BLOOD LOSS: 5 mL. FINDINGS: A 1 cm supraumbilical hernia containing fat. This was reducible. COMPLICATIONS: None. INDICATIONS: The patient is a 30-year-old female who presents with a symptomatic umbilical hernia after her . The patient and I discussed the need for repair. I explained the procedure, expected perioperative course, and risks. The patient verbalized understanding and wishes to proceed. PROCEDURE IN DETAIL: The patient was brought into the OR and placed on the OR table in supine position. A time-out was completed verifying the patient's name, age, date of , allergies, and procedure to be performed. General LMA anesthesia was induced. The abdomen was prepped and draped in usual standard fashion. I anesthetized the supraumbilical fold with 0.5% Marcaine plain. A 3 cm incision was made along the supraumbilical fold using a 15 blade. Cautery was used to dissect down to the level of subcutaneous fat. I immediately encountered a hernia sac. Using blunt and sharp dissection, I dissected the hernia sac free from the surrounding structures down to the level of the fascia. The umbilical hernia sac was removed from the overlying skin. I entered the very thin hernia sac and it contained a small amount of omentum. This was dissected free from the hernia sac and reduced back into the abdomen. The hernia sac was excised and discarded. The supraumbilical defect measured 1 cm in size. The decision was made to close this primarily with nonabsorbable sutures. I ensured that the fascia underneath and around my fascial defect was clear of any other adhesions or structures. I then closed the hernia defect with interrupted 0 Ethibond sutures. The wound was irrigated and hemostasis was achieved with electrocautery. I then used an interrupted 3-0 Vicryl suture to suture the overlying umbilical skin back down to the fascia. I then closed the subcutaneous fat layer with interrupted 3-0 Vicryl sutures. I then closed the skin with a running 4-0 Monocryl stitch. Dermabond and sterile dressings were applied. The patient tolerated the procedure well was taken to the PACU in stable condition. ARLEN / MODL /[id number]
== END 2020-04-22 12:00 | disposition home or self-care (01) ==
LOC: MW.SDS 06:48
PROVIDERS: ATTEND Surgery
DX: K42.9 Umbilical hernia without obstruction or gangrene (principal); J45.909 Unspecified asthma, uncomplicated; R51 Headache; F41.9 Anxiety disorder, unspecified; Z79.899 Other long term (current) drug therapy
CPT/HCPCS: 49585; 81025; A9270; J0690; J1100; J2001; J2250; J2405; J2704; J3010; J3490; J7120; 00750

== ENCOUNTER 2020-06-19 07:37 | Day surgery (SDC) | payer OTHER ==
[2020-06-19] MEDS ORDERED: Propofol 200 MG/20 ML SDV ONE (08:39)
[2020-06-19] MEDS ORDERED: Midazolam 1 MG/ML 2 ML SDV ONE (08:39)
[2020-06-19] MEDS ORDERED: Lidocaine 2% 5 ML SDV ONE (08:39)
[2020-06-19] MEDS ORDERED: fentaNYL 100 MCG/2 ML SDV ONE ×2 (08:39→09:35)
[2020-06-19] MEDS ORDERED: Ondansetron 4 MG/2 ML SDV ONE (08:39)
--- NOTE | 2020-06-19 08:45 | PCM.PREANE ---
Preanesthetic Assessment - Anesthesia/Transfusion/Family Hx Anesthesia History: Prior Anesthesia Without Reaction Other Type of Anesthesia Reaction Comment: spinal headache after spinal anesthesia requiring 2 blood patches 7 days ap Family History of Anesthesia Reaction: No Transfusion History: No Prior Transfusion(s) Intubation History: Unknown - Review of Systems General: No Symptoms Pulmonary: No Symptoms Cardiovascular: No Symptoms Gastrointestinal: No Symptoms Neurological: No Symptoms Other: Reports: None - Physical Assessment NPO Status Date: 06/18/20 Height: 5 ft 8 in Weight: 83.915 kg ASA Class: 2 Mental Status: Alert & Oriented x3 Airway Class: Mallampati = 2 Dentition: Reports: Normal Dentition ROM/Head Extension: Full Lungs: Clear to Auscultation, Normal Respiratory Effort Cardiovascular: Regular Rate, Regular Rhythm - Lab Values: Laboratory Last Values Urine HCG, Qual NEGATIVE (NEGATIVE) 06/19/20 07:50 - Allergies Allergies/Adverse Reactions: Allergies Allergy/AdvReac Type Severity Reaction Status Date / Time cat dander Allergy sneezing, Verified 06/13/20 08:22 itching, hives dog dander Allergy sneezing, Verified 06/13/20 08:22 itching, hives dust Allergy sneezing, Uncoded 06/13/20 08:19 itching - Blood Blood Available: No - Anesthesia Plan Pre-Op Medication Ordered: None - Acknowledgements Anesthesia Type Planned: General Anesthesia Pt an Appropriate Candidate for the Planned Anesthesia: Yes Alternatives and Risks of Anesthesia Discussed w Pt/Guardian: Yes Pt/Guardian Understands and Agrees with Anesthesia Plan: Yes Additional Comments: PMH: asthma, anxiety PLAN: ga/lma PreAnesthesia Questionnaire HEENT History: Reports: Other (See Below) Other HEENT History: wears glasses Cardiovascular History: Reports: None Respiratory History: Reports: Asthma Gastrointestinal History: Reports: None, Other (See Below) Genitourinary History: Reports: None 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: currently 11 weeks post- Musculoskeletal History: Reports: None Neurological History: Reports: None Psychiatric History: Reports: Anxiety Endocrine/Metabolic History: Reports: None Hematologic History: Reports: None Immunologic History: Reports: None Oncologic (Cancer) History: Reports: None Dermatologic History: Reports: None - Infectious Disease History Infectious Disease History: Reports: None - Past Surgical History Head Surgeries/Procedures: Reports: None HEENT Surgical History: Reports: Oral Surgery, Tonsillectomy Other HEENT Surgeries/Procedures: wisdom teeth removed Cardiovascular Surgical History: Reports: None Respiratory Surgical History: Reports: None GI Surgical History: Reports: None, Hernia Repair/Other Female Surgical History: Reports: Section, D&C Other Female Surgeries/Procedures: x3 Endocrine Surgical History: Reports: None Neurological Surgical History: Reports: None Musculoskeletal Surgical History: Reports: None Oncologic Surgical History: Reports: None Dermatological Surgical History: Reports: None - SUBSTANCE USE Smoking Status *Q: Never Smoker - HOME MEDS Home Medications: Home Meds Albuterol [Ventolin HFA] 2 puff INH ASDIRECTED PRN 07/13/16 [History] ALPRAZolam [Alprazolam] 0.5 mg PO ASDIRECTED PRN 06/29/18 [History] - CURRENT (IN HOUSE) MEDS Current Meds: Current Medications Lactated Ringer's (Ringers, Lactated) 1,000 mls @ 125 mls/hr IV ASDIRECTED SUSANNE Sodium Chloride (Saline Flush) 2.5 ml FLUSH ASDIRECTED PRN PRN Reason: Keep Vein Open Sodium Chloride (Normal Saline) 10 ml IV ASDIRECTED PRN PRN Reason: IV Use Sodium Chloride (Saline Flush) 10 ml FLUSH ASDIRECTED PRN PRN Reason: Keep Vein Open Discontinued Medications Fentanyl (Sublimaze) Confirm Administered Dose 100 mcg .ROUTE .STK-MED ONE Stop: 06/19/20 08:40 Cefazolin Sodium/Dextrose 2 gm (/ Premix) 50 mls @ 100 mls/hr IV ONETIME ONE Stop: 06/15/20 12:54 Lidocaine (Xylocaine-Mpf 2%) Confirm Administered Dose 5 ml .ROUTE .STK-MED ONE Stop: 06/19/20 08:40 Midazolam HCl (Versed 1 Mg/Ml) Confirm Administered Dose 2 mg .ROUTE .STK-MED ONE Stop: 06/19/20 08:40 Ondansetron HCl (Zofran) Confirm Administered Dose 4 mg .ROUTE .STK-MED ONE Stop: 06/19/20 08:40 Propofol (Diprivan 20 Ml) Confirm Administered Dose 200 mg .ROUTE .STK-MED ONE Stop: 06/19/20 08:40
[2020-06-19] MEDS ORDERED: Bupivacaine 0.5% 10 ML SDV ONE (09:18)
[2020-06-19] MEDS ORDERED: ceFAZolin/Dextrose,Iso-Osmotic 2 GM/50 ML Duplex Bag IV ONE (09:20)
[2020-06-19] MEDS ORDERED: ceFAZolin 1 GM Vial ONE (09:23)
[2020-06-19] MEDS ORDERED: Atropine 0.1 MG/ML 10 ML Syringe IVPUSH PRN ×2 (09:38)
[2020-06-19] MEDS ORDERED: fentaNYL 100 MCG/2 ML SDV IVPUSH PRN (09:38)
[2020-06-19] MEDS ORDERED: 50% Dextrose in Water 50 ML Syringe IVPUSH PRN (09:38)
[2020-06-19] MEDS ORDERED: Naloxone 0.4 MG/ML Syringe IVPUSH PRN (09:38)
[2020-06-19] MEDS ORDERED: EPINEPHrine 1:10,000 1 MG/10 ML Syringe IVPUSH PRN (09:38)
[2020-06-19] MEDS ORDERED: Albuterol 0.083% 2.5 MG/3 ML Neb Soln NEB PRN (09:38)
--- NOTE | 2020-06-19 10:02 | PCM.OPNOTE ---
- General Post-Op/Procedure Note Date of Surgery/Procedure: 06/19/20 Operative Procedure(s): Incision and drainage of right breast abscess. Findings: 8 cm x 6 cm x 4 cm right upper outer quadrant breast abscess with purulence. Pre Op Diagnosis: Right breast abscess. Post-Op Diagnosis: Right breast abscess. Anesthesia Technique: General LMA Primary Surgeon: Zofia Hurst Fluid Replacement, Intraop: 1,000 EBL in mLs: 10 Complications: None Condition: Stable
--- NOTE | 2020-06-19 10:28 | PCM.POSTAN ---
POST ANESTHESIA ASSESSMENT - MENTAL STATUS Mental Status: Alert, Oriented - VITAL SIGNS Vital Signs: Last Vital Signs Temp 36.3 C 06/19/20 08:15 Pulse 71 06/19/20 10:25 Resp 15 06/19/20 10:25 BP 123/59 L 06/19/20 10:25 Pulse Ox 100 06/19/20 10:25 - RESPIRATORY Respiratory Status: Respiratory Rate WNL, Airway Patent, O2 Saturation Stable - CARDIOVASCULAR CV Status: Pulse Rate WNL, Blood Pressure Stable - GASTROINTESTINAL GI Status: No Symptoms - POST OP HYDRATION Hydration Status: Adequate & Stable
--- NOTE | 2020-06-19 10:38 | PCM48HPAN ---
Post Anesthesia Note - EVALUATION WITHIN 48HRS OF ANESTHETIC Vital Signs in Normal Range: Yes Patient Participated in Evaluation: Yes Respiratory Function Stable: Yes Airway Patent: Yes Cardiovascular Function Stable: Yes Hydration Status Stable: Yes Pain Control Satisfactory: Yes Nausea and Vomiting Control Satisfactory: Yes Mental Status Recovered: Yes Vital Signs: Last Vital Signs Temp 97.3 F 06/19/20 08:15 Pulse 71 06/19/20 10:25 Resp 15 06/19/20 10:25 BP 123/59 L 06/19/20 10:25 Pulse Ox 100 06/19/20 10:25
--- NOTE | 2020-06-19 10:40 | OR ---
SURGEON: ZOFIA HURST MD DATE OF PROCEDURE: 06/19/2020 PREOPERATIVE DIAGNOSIS: Right breast abscess. POSTOPERATIVE DIAGNOSIS: Right breast abscess. PROCEDURE PERFORMED: Incision and drainage, right breast abscess. PRIMARY SURGEON: Zofia Hurst MD HANDBAG FINISHER: Production Material Handler: Dr. Trey Hobbs, enrollment services vice president. ANESTHESIA: General LMA. FLUIDS: 1000 mL crystalloid. ESTIMATED BLOOD LOSS: 10 mL. FINDINGS: 8 x 6 x 4 cm breast abscess in the right upper outer quadrant of the breast. The abscess contained gilma purulent material. COMPLICATIONS: None. INDICATIONS: The patient is a 30-year-old female who presented to clinic with a right breast mass. She underwent an ultrasound-guided aspiration, which revealed purulent material. The material was cultured and found to be pansensitive Staph aureus. The breast abscess reoccurred shortly after her radiology procedure. She came to clinic and the decision was made to perform an incision and drainage in the operating room. I explained the procedure, expected perioperative course, the need for dressing changes afterwards, and the risks of bleeding or infection. The patient verbalized understanding and wishes to proceed. PROCEDURE IN DETAIL: The patient was brought into the OR and placed on the OR table in supine position. A time-out was completed verifying the patient's name, age, date of , allergies, and procedure to be performed. General LMA anesthesia was induced. The chest wall was then prepped and draped in usual standard fashion. I anesthetized the superior areolar border with 0.5% Marcaine plain. A 15 blade was used to make an incision from the 9 to 12 o'clock position along the areolar border. Cautery was used to dissect down to the level of the breast tissue. I dissected down until I met a cyst wall. Using an empty syringe and a needle, I placed this into the cyst and drained 10 mL of purulent material. Using cautery, I then entered into the cyst capsule. A large amount of purulent material was expressed. I enlarged my opening into the cyst both medially and laterally making an approximately 4 cm incision. The wound cavity was explored bluntly. It was quite large measuring 8 x 6 x 4 cm in size. It was located underneath the nipple and tracked into the right upper outer quadrant of her breast. The wound was irrigated copiously with normal saline mixed with Ancef solution. I then achieved hemostasis with electrocautery. The wound cavity was packed with vaginal packing soaked in the Ancef and saline solution. The wound was then covered with dry 4x4 dressing and secured to the skin with tape. The patient tolerated the procedure well. All counts were complete and correct at the end of the case. The patient was extubated and taken to the PACU in stable condition. ARLEN RUIZ /[id number]
[2020-06-19 13:36] VITALS: BP 106/63; PULSE 83
== END 2020-06-19 12:20 | disposition home or self-care (01) ==
LOC: MW.SDS 07:37
PROVIDERS: ATTEND Surgery
DX: N61.1 Abscess of the breast and nipple (principal); F41.9 Anxiety disorder, unspecified; J45.909 Unspecified asthma, uncomplicated; Z91.048 Other nonmedicinal substance allergy status; Z79.899 Other long term (current) drug therapy; Z98.890 Other specified postprocedural states
CPT/HCPCS: 19030; 81025; J0690; J2001; J2250; J2405; J2704; J3490; J7120; 00400; J3010

== ENCOUNTER 2021-08-24 09:11 | Day surgery (SDC) | payer OTHER ==
[~2021-08-24 09:11] MED LIST changes: +Dexamethasone 4 MG/ML 5 ML MDV ONE; +Dexmedetomidine 200 MCG/2 ML SDV ONE; +Midazolam 1 MG/ML 2 ML SDV ONE; +Propofol 200 MG/20 ML SDV ONE; -Sodium Chloride 0.9% 10 ML SDV IV PRN; -Sodium Chloride 0.9% 10 ML Syringe FLUSH PRN; -Sodium Chloride 0.9% 2.5 ML Syringe FLUSH PRN; -ceFAZolin 2 GM in Premix Bag 1 BAG IV ONE; +fentaNYL 100 MCG/2 ML SDV ONE
[2021-08-24] MEDS ORDERED: Ondansetron 4 MG/2 ML SDV IVPUSH PRN (10:25)
[2021-08-24] MEDS ORDERED: HYDROmorphone 1 MG/ML Syringe IVPUSH PRN (10:25)
[2021-08-24] MEDS ORDERED: Albuterol 0.083% 2.5 MG/3 ML Neb Soln NEB PRN (10:25)
[2021-08-24] MEDS ORDERED: Naloxone 0.4 MG/ML SDV IVPUSH PRN (10:25)
[2021-08-24] MEDS ORDERED: Metoclopramide 10 MG/2 ML SDV IVPUSH PRN (10:25)
[2021-08-24] MEDS ORDERED: fentaNYL 100 MCG/2 ML SDV IVPUSH PRN (10:25)
--- NOTE | 2021-08-24 10:27 | PCM.PREANE ---
Preanesthetic Assessment - Procedure Proposed Procedure: Dx Hysteroscopy - Anesthesia/Transfusion/Family Hx Anesthesia History: Prior Anesthesia Without Reaction Other Type of Anesthesia Reaction Comment: spinal headache after spinal anesthesia requiring 2 blood patches 7 days ap Family History of Anesthesia Reaction: No Transfusion History: No Prior Transfusion(s) Intubation History: Unknown - Review of Systems General: No Symptoms Pulmonary: No Symptoms (Asthma) Cardiovascular: No Symptoms Gastrointestinal: No Symptoms Neurological: No Symptoms Other: Reports: None - Physical Assessment NPO Status Date: 08/24/21 NPO Status Time: 00:01 Vital Signs: Last Vital Signs Temp 98.4 F 08/24/21 10:13 Pulse 68 08/24/21 10:13 Resp 16 08/24/21 10:13 BP 123/68 08/24/21 10:13 Pulse Ox 98 08/24/21 10:13 Height: 5 ft 8 in Weight: 73.028 kg ASA Class: 2 Mental Status: Alert & Oriented x3 Airway Class: Mallampati = 2 Dentition: Reports: Normal Dentition Thyro-Mental Finger Breadths: 3 Mouth Opening Finger Breadths: 3 ROM/Head Extension: Full Lungs: Clear to Auscultation, Normal Respiratory Effort Cardiovascular: Regular Rate, Regular Rhythm - Lab Values: Laboratory Last Values Hgb 13.8 g/dL (12.0-16.0) 08/21/21 11:19 Hct 41.0 % (36.0-46.0) 08/21/21 11:19 HCG, Qual NEGATIVE (NEG) 08/21/21 11:19 - Allergies Allergies/Adverse Reactions: Allergies Allergy/AdvReac Type Severity Reaction Status Date / Time cat dander Allergy sneezing, Verified 08/19/21 09:30 itching, hives dog dander Allergy sneezing, Verified 08/19/21 09:30 itching, hives dust Allergy sneezing, Uncoded 06/13/20 08:19 itching - Acknowledgements Anesthesia Type Planned: General Anesthesia Pt an Appropriate Candidate for the Planned Anesthesia: Yes Alternatives and Risks of Anesthesia Discussed w Pt/Guardian: Yes Pt/Guardian Understands and Agrees with Anesthesia Plan: Yes PreAnesthesia Questionnaire HEENT History: Reports: Other (See Below) Other HEENT History: wears glasses Cardiovascular History: Reports: None Respiratory History: Reports: Asthma Gastrointestinal History: Reports: None, Other (See Below) Genitourinary History: Reports: None PRODUCE SORTER History: Reports: Musculoskeletal History: Reports: None Neurological History: Reports: None Psychiatric History: Reports: Anxiety Endocrine/Metabolic History: Reports: None Hematologic History: Reports: None Immunologic History: Reports: None Oncologic (Cancer) History: Reports: None Dermatologic History: Reports: None - Infectious Disease History Infectious Disease History: Reports: None - Past Surgical History Head Surgeries/Procedures: Reports: None HEENT Surgical History: Reports: Oral Surgery, Tonsillectomy Other HEENT Surgeries/Procedures: wisdom teeth removed Cardiovascular Surgical History: Reports: None Respiratory Surgical History: Reports: None GI Surgical History: Reports: Hernia Repair/Other Other GI Surgeries/Procedures: hx umbilical hernia repair Female Surgical History: Reports: Section, D&C Other Female Surgeries/Procedures: x3, I&D right breast absess Endocrine Surgical History: Reports: None Neurological Surgical History: Reports: None Musculoskeletal Surgical History: Reports: None Oncologic Surgical History: Reports: None Dermatological Surgical History: Reports: None - SUBSTANCE USE Tobacco Use Status *Q: Never Tobacco User Recreational Drug Use History: No - HOME MEDS Home Medications: Home Meds Albuterol [Ventolin HFA] 2 puff INH ASDIRECTED PRN 07/13/16 [History] ALPRAZolam [Alprazolam] 0.5 mg PO ASDIRECTED PRN 06/29/18 [History] - CURRENT (IN HOUSE) MEDS Current Meds: Current Medications Lactated Ringer's (Ringers, Lactated) 1,000 mls @ 125 mls/hr IV ASDIRECTED SUSANNE Last Admin: 08/24/21 10:11 Dose: 125 mls/hr Documented by: Discontinued Medications Dexamethasone (Dexamethasone 4 Mg/Ml 5 Ml Mdv) Confirm Administered Dose 20 mg .ROUTE .STK-MED ONE Stop: 08/24/21 08:54 Dexmedetomidine HCl (Dexmedetomidine 200 Mcg/2 Ml Sdv) Confirm Administered Dose 200 mcg .ROUTE .STK-MED ONE Stop: 08/24/21 08:54 Fentanyl (Fentanyl 100 Mcg/2 Ml Sdv) Confirm Administered Dose 100 mcg .ROUTE .STK-MED ONE Stop: 08/24/21 08:54 Midazolam HCl (Midazolam 1 Mg/Ml 2 Ml Sdv) Confirm Administered Dose 2 mg .ROUTE .STK-MED ONE Stop: 08/24/21 08:54 Propofol (Propofol 200 Mg/20 Ml Sdv) Confirm Administered Dose 200 mg .ROUTE .K-MED ONE Stop: 08/24/21 08:54
[2021-08-24] MEDS ORDERED: Propofol 200 MG/20 ML SDV ONE (11:44)
[2021-08-24] MEDS ORDERED: Ondansetron 4 MG/2 ML SDV ONE (11:58)
--- NOTE | 2021-08-24 12:12 | PCM.OPNOTE ---
- General Post-Op/Procedure Note Date of Surgery/Procedure: 08/24/21 Operative Procedure(s): diagnostic hysteroscopy, dilatation and curettage, Kassi endometrial ablation Findings: uterus anteverted 8 week size, sounds to 7 cm, normal cavity Pre Op Diagnosis: menorrhgia Post-Op Diagnosis: Same Anesthesia Technique: General LMA Primary Surgeon: Stefani Angel Anesthesia Provider: Bang Nguyen Pathology: uterine curettings Fluid Replacement, Intraop: 1,000 EBL in mLs: 10 Complications: None Known Condition: Good
--- NOTE | 2021-08-24 12:30 | PCM.POSTAN ---
POST ANESTHESIA ASSESSMENT - MENTAL STATUS Mental Status: Alert, Oriented - VITAL SIGNS Vital Signs: Last Vital Signs Temp 97.3 F 08/24/21 12:08 Pulse 62 08/24/21 12:28 Resp 14 08/24/21 12:28 BP 89/46 L 08/24/21 12:28 Pulse Ox 100 08/24/21 12:28 - RESPIRATORY Respiratory Status: Respiratory Rate WNL, Airway Patent, O2 Saturation Stable - CARDIOVASCULAR CV Status: Pulse Rate WNL, Blood Pressure Stable - GASTROINTESTINAL GI Status: No Symptoms - PAIN Pain Score: 3 - POST OP HYDRATION Hydration Status: Adequate & Stable
--- NOTE | 2021-08-24 12:34 | PCM48HPAN ---
Post Anesthesia Note - EVALUATION WITHIN 48HRS OF ANESTHETIC Vital Signs in Normal Range: Yes Patient Participated in Evaluation: Yes Respiratory Function Stable: Yes Airway Patent: Yes Cardiovascular Function Stable: Yes Hydration Status Stable: Yes Pain Control Satisfactory: Yes Nausea and Vomiting Control Satisfactory: Yes Mental Status Recovered: Yes Vital Signs: Last Vital Signs Temp 97.3 F 08/24/21 12:08 Pulse 62 08/24/21 12:28 Resp 14 08/24/21 12:28 BP 89/46 L 08/24/21 12:28 Pulse Ox 100 08/24/21 12:28 - COMMENTS/OBSERVATIONS Free Text/Narrative:: Pt doing well post-op. VSS. No apparent anesthetic complications. Dr. Niranjan Dillard
[2021-08-24 13:52] VITALS: BP 112/60; PULSE 72
--- NOTE | 2021-08-25 09:13 | OR ---
SURGEON: Stefani Angel M.D. DATE OF PROCEDURE: 08/24/2021 PREOPERATIVE DIAGNOSIS: Menorrhagia. POSTOPERATIVE DIAGNOSIS: Menorrhagia. PROCEDURES: Diagnostic hysteroscopy, uterine curettage, and endometrial ablation with Kassi system. ANESTHESIA: General LMA. ESTIMATED BLOOD LOSS: Less than 20 mL. FINDINGS: Uterus anteverted, sounds to 7 cm. Cervical length of 3 cm. Uterine fundus length of 4 cm. On hysteroscopic evaluation, there was excellent visualization of the cavity. There was no evidence of any polyp, fibroid, or other lesions. COMPLICATIONS: None known. DISPOSITION: Stable to Recovery. BRIEF HISTORY: This is a 31-year-old female. She presents with complaint of heavy periods that limits her activities. She uses multiple products to avoid flooding. She does not want an IUD and was counseled about the need to not become following ablation. She desires to proceed with an endometrial ablation. Her has had a vasectomy. She understands that if she were to have a new partner, she must use alternative contraception. The risks were discussed including bleeding, infection, uterine perforation with injury to surrounding organs, risk of Asherman syndrome, and risk of thromboembolic event. Understanding all these risks, she does desire to proceed. DESCRIPTION OF PROCEDURE: With the patient in dorsal lithotomy position, under adequate general LMA analgesia, the perineum and vagina were prepped with Betadine and draped in usual fashion for vaginal surgery. SCDs were in place. The bladder had been drained with straight cath, and an appropriate time-out was held. Bimanual examination revealed an anteverted [id number] uterus. Speculum was placed in the vagina. The anterior lip of the cervix was grasped with an Allis clamp. The uterus sounded to 7 cm and was dilated to a 6 mm Hegar dilator. The 5 mm hysteroscope was placed into the uterine cavity and using normal saline as a distending medium, there was excellent visualization of the cavity which was normal. This being completed, the hysteroscope was removed. Deficit was minimal, and sharp curettage of the endometrium was performed with a moderate amount of tissue obtained. The Kassi ablation system was then prepared with a uterine depth of 4 cm, cervical depth of 3 cm. The cycle was initiated and safety checks were cleared, and the 2-minute treatment cycle was performed. With this being completed, the balloon was desufflated, the arms were retracted, and the instrument was removed from the vagina. The cervix was examined. There was minimal bleeding. All the instruments were removed from the vagina. Final sponge, needle, and instrument counts were reported as correct. There were no known complications. The patient was transferred to Recovery in good condition. LOLIS RUIZ /[id number]
== END 2021-08-24 13:40 | disposition home or self-care (01) ==
LOC: MW.SDS 09:11
PROVIDERS: ATTEND Obstetrics & Gynecology
DX: N84.0 Polyp of corpus uteri (principal); N92.0 Excessive and frequent menstruation with regular cycle; F41.9 Anxiety disorder, unspecified; Z79.899 Other long term (current) drug therapy; Z98.890 Other specified postprocedural states
CPT/HCPCS: 36415; 58563; 84703; 85014; 85018; J0131; J1100; J2250; J2405; J2704; J7120; 00952; J3010